=== PATIENT | female | born 2000 | race American Indian/Alaskan Native ===

== ENCOUNTER 2021-02-07 08:00 | Outpatient (CLI) | payer OTHER | END 2021-02-07 08:30 | disposition home or self-care (01) | LOC: PPH VACUNA 08:00 | PROVIDERS: ATTEND Emergency Medicine Pediatric Emergency Medicine | DX: Z23 Encounter for immunization (principal) ==

== ENCOUNTER 2021-04-11 09:00 | Outpatient (CLI) | payer OTHER | END 2021-04-11 09:15 | disposition home or self-care (01) | LOC: PPH VACUNA 09:00 | PROVIDERS: ATTEND Emergency Medicine Pediatric Emergency Medicine | DX: Z23 Encounter for immunization (principal) ==

== ENCOUNTER 2021-08-09 14:38 | Emergency (ER) | payer OTHER ==
[~2021-08-09] VITALS: Ht 160 cm; Wt 50.8 kg
[2021-08-09] MEDS ORDERED: ZITHROMAX200 MG PO (16:32)
== END 2021-08-09 16:38 | disposition home or self-care (01) ==
LOC: ER 14:38
DX: A49.3 Mycoplasma infection, unspecified site (principal); R53.81 Other malaise; Z20.822 Contact with and (suspected) exposure to COVID-19; Z88.2 Allergy status to sulfonamides; Z88.1 Allergy status to other antibiotic agents

== ENCOUNTER 2022-04-23 16:00 | Outpatient (CLI) | payer OTHER ==
[~2022-04-23 16:00] MED LIST: ZITHROMAX200 MG PO
== END 2022-04-23 16:15 | disposition home or self-care (01) ==
LOC: PPH VACUNA 16:00
PROVIDERS: ATTEND Emergency Medicine Pediatric Emergency Medicine
DX: Z23 Encounter for immunization (principal)

== ENCOUNTER → 2022-05-15 06:48 | Outpatient (CLI) | payer OTHER | END | disposition home or self-care (01) | LOC: LAB 06:48 | PROVIDERS: ATTEND Student in an Organized Health Care Education/Training Program | DX: Z12.11 Encounter for screening for malignant neoplasm of colon (principal); D64.9 Anemia, unspecified; D03.8 Melanoma in situ of other sites; N95.1 Menopausal and female climacteric states; I10 Essential (primary) hypertension; C51.9 Malignant neoplasm of vulva, unspecified; N30.00 Acute cystitis without hematuria; E83.51 Hypocalcemia; A64 Unspecified sexually transmitted disease; N39.0 Urinary tract infection, site not specified; R97.8 Other abnormal tumor markers; R79.89 Other specified abnormal findings of blood chemistry; E55.9 Vitamin D deficiency, unspecified; A60.9 Anogenital herpesviral infection, unspecified ==

== ENCOUNTER 2022-08-28 09:45 | Outpatient (CLI) | payer OTHER | END 2022-08-28 15:42 | disposition home or self-care (01) | LOC: MRI 09:45 | PROVIDERS: ATTEND Student in an Organized Health Care Education/Training Program | DX: R10.2 Pelvic and perineal pain (principal); R19.00 Intra-abdominal and pelvic swelling, mass and lump, unspecified site ==

== ENCOUNTER 2023-02-04 06:29 | Outpatient (CLI) | payer OTHER ==
[~2023-02-04 06:29] MED LIST changes: +ZITHROMAX500 MG PO
[2023-02-04 07:43] LABS: PH,URINE 5.5 (5.0-8.0); URINE APPEARANCE Clear; URINE BILIRRUBIN Negative (NEGATIVE); URINE BLOOD Negative; URINE COLOR Yellow; URINE GLUCOSE Negative (NEGATIVE); URINE LEUKOCYTE Negative; URINE NITRATE Negative; URINE PROTEIN Negative (NEGATIVE); URINE UROBILINOGEN 0.2 E.U./dl
[2023-02-04 07:47] LABS: URINE RBC 9.1 uL (0.0-20.8)
[2023-02-04 08:04] LABS: URINE EPITHELIAL CELLS 1.2 uL (0.0-38.8); URINE WBC 1.6 uL (0.0-23.2)
[2023-02-04 08:05] LABS: HEMOGLOBIN 12.8 g/dL (12.0-15.00); MEAN CELL VOLUME 93.4 fL (80.00-100.00); MEAN CORPUSCULAR HEMOGLOBIN 32.5 pg (27.00-32.0); MEAN CORPUSCULAR HGB CONC 34.7 g/dl (32.0-36.0); PLATELET COUNT 231 K/uL (150-450); RED BLOOD COUNT 3.96 M/uL (4.00-6.00); RED CELL DISTRIBUTION WIDTH 12.9 % (11.5-14.5)
[2023-02-04 08:24] LABS: ALBUMIN 3.7 gm/dL (3.4-5.0); ALKALINE PHOSPHATASE 45 U/L (50-136); ALT/SGPT 69 U/L (12-78); ANION GAP 8 (10.0-20.0); AST/SGOT 130 U/L (15-37); BILIRUBIN TOTAL 0.45 mg/dL (0.3-1.2); BLOOD UREA NITROGEN 20 mg/dL (7-18); BUN CREA RATIO 32 (7.0-25.0); CALCIUM 8.7 mg/dL (8.5-10.1); CARBON DIOXIDE 27 mEq/L (21-32); CHLORIDE 107 mmol/L (98-107); CHOL HDL RATIO 2.5 (0-5.0); CHOLESTEROL 114 mg/dL (0-200); CREATININE SERUM 0.62 mg/dL (0.55-1.02); FREE TRIODOTIRONINE 2.78 pg/ml (2.18-3.98); GFR 117.28; GLOBULINA 3.3 G/DL (2.4-3.5); GLUCOSE FASTING 90 mg/dL (65-100); HDL 46 mg/dl (40-60); LDL 54 mg/dl (0-130); OSMOLALITY SERUM 278 MOSM/KG (275-295); POTASSIUM 3.75 mEq/L (3.5-5.1); SODIUM 138 mmol/L (136-145); T4 TOTAL 7.67 UG/DL (4.8-13.9); TRIGLYCERIDES 68 mg/dL (0-150); VLDL 13 (0-39)
[2023-02-04 08:29] LABS: C-REACTIVE PROTEIN < 0.29 MG/DL (0.00-0.29)
[2023-02-04 09:28] LABS: ERYTHROCYTE SEDIMENTATION RATE 2 mm/hr
== END 2023-02-04 06:30 | disposition home or self-care (01) ==
LOC: LAB 06:29
PROVIDERS: ATTEND Internal Medicine
DX: D25.9 Leiomyoma of uterus, unspecified (principal); Z13.1 Encounter for screening for diabetes mellitus; Z13.220 Encounter for screening for lipoid disorders; Z13.29 Encounter for screening for other suspected endocrine disorder; E55.9 Vitamin D deficiency, unspecified; N39.0 Urinary tract infection, site not specified; R73.9 Hyperglycemia, unspecified; Z88.1 Allergy status to other antibiotic agents; Z88.2 Allergy status to sulfonamides

== ENCOUNTER → 2023-03-04 | Emergency (ER) | payer OTHER ==
[~2023-03-04] VITALS: Ht 154.9 cm; Wt 49.9 kg
[~2023-03-04] MED LIST changes: +MACROBID 100 M100 MG PO
[2023-03-04 16:21] LABS: HEMATOCRIT 43.2 % (36.0-45.00); HEMOGLOBIN 14.7 g/dL (12.0-15.00); MEAN CELL VOLUME 93.9 fL (80.00-100.00); MEAN CORPUSCULAR HEMOGLOBIN 31.9 pg (27.00-32.0); PLATELET COUNT 264 K/uL (150-450); RED CELL DISTRIBUTION WIDTH 12.2 % (11.5-14.5)
[2023-03-04 16:47] LABS: INR 1.04; PARTIAL THROMBOPLASTIN TIME 32.2 SECONDS (22.0-34.0); PROTHROMBIN TIME 10.9 SECONDS (9.0-11.5)
[2023-03-04 16:49] LABS: CALCIUM 9.5 mg/dL (8.5-10.1); CREATININE SERUM 0.79 mg/dL (0.55-1.02); GFR 88.67; POTASSIUM 3.92 mEq/L (3.5-5.1)
[2023-03-04 17:23] LABS: PH,URINE 7.5 (5.0-8.0); URINE APPEARANCE Turbid; URINE BILIRRUBIN Negative (NEGATIVE); URINE BLOOD Small; URINE COLOR Yellow; URINE GLUCOSE Negative (NEGATIVE); URINE LEUKOCYTE Small; URINE NITRATE Negative; URINE PROTEIN Negative (NEGATIVE)
[2023-03-04 17:24] LABS: URINE BACTERIA 3687.9 uL (0.0-1933); URINE EPITHELIAL CELLS 94.3 uL (0.0-38.8); URINE RBC 21.5 uL (0.0-20.8); URINE WBC 19.9 uL (0.0-23.2)
== END | disposition home or self-care (01) ==
LOC: ER 14:21
PROVIDERS: Nurse Practitioner Family
DX: R10.2 Pelvic and perineal pain (principal); Z88.2 Allergy status to sulfonamides; Z88.6 Allergy status to analgesic agent; D25.9 Leiomyoma of uterus, unspecified; N39.0 Urinary tract infection, site not specified

== ENCOUNTER 2023-03-16 20:39 | Inpatient (IN) | payer OTHER ==
[~2023-03-16] VITALS: Ht 157.5 cm; Wt 49.9 kg
[2023-03-16 21:41] LABS: HEMATOCRIT 39.9 % (36.0-45.00); HEMOGLOBIN 13.9 g/dL (12.0-15.00); MEAN CELL VOLUME 93.5 fL (80.00-100.00); MEAN CORPUSCULAR HEMOGLOBIN 32.5 pg (27.00-32.0); MEAN CORPUSCULAR HGB CONC 34.8 g/dl (32.0-36.0); PLATELET COUNT 264 K/uL (150-450); RED BLOOD COUNT 4.27 M/uL (4.00-6.00); RED CELL DISTRIBUTION WIDTH 12.2 % (11.5-14.5)
[2023-03-16 23:29] LABS: PH,URINE 6.5 (5.0-8.0); URINE APPEARANCE Clear; URINE BILIRRUBIN Negative (NEGATIVE); URINE BLOOD Negative; URINE COLOR Yellow; URINE LEUKOCYTE Negative; URINE NITRATE Negative; URINE PROTEIN Negative (NEGATIVE)
[2023-03-16 23:33] LABS: URINE BACTERIA 264.5 uL (0.0-1933); URINE EPITHELIAL CELLS 31.3 uL (0.0-38.8); URINE RBC 21.1 uL (0.0-20.8); URINE WBC 11.5 uL (0.0-23.2)
[2023-03-16 23:41] LABS: HEMATOCRIT 41.1 % (36.0-45.00); HEMOGLOBIN 13.9 g/dL (12.0-15.00); MEAN CELL VOLUME 93.6 fL (80.00-100.00); MEAN CORPUSCULAR HEMOGLOBIN 31.8 pg (27.00-32.0); PLATELET COUNT 266 K/uL (150-450); RED BLOOD COUNT 4.39 M/uL (4.00-6.00); RED CELL DISTRIBUTION WIDTH 12.1 % (11.5-14.5)
[2023-03-16 23:42] LABS: URINE GLUCOSE >=1000 MG/DL (NEGATIVE)
[2023-03-16 23:49] LABS: ALBUMIN 4.5 gm/dL (3.4-5.0); BILIRUBIN TOTAL 0.93 mg/dL (0.3-1.2); CALCIUM 9.9 mg/dL (8.5-10.1); CREATININE SERUM 0.96 mg/dL (0.55-1.02); GFR 70.81; GLOBULINA 4.4 G/DL (2.4-3.5); POTASSIUM 3.25 mEq/L (3.5-5.1); TOTAL PROTEIN 8.9 gm/dL (6.4-8.2)
[2023-03-17 00:56] LABS: INR 1.04; PROTHROMBIN TIME 10.9 SECONDS (9.0-11.5)
[2023-03-17 01:01] LABS: ABG PH 7.447 (7.35-7.45); ABG PO2 117.2 mmHg (80-100); ABG pCO2 27.9 mmHg (35-45); BASE EXCESS -3.6 mmol/l; BICARBONATE 18.8 mmol/l (23-25); SaO2 98.7 %; Tco2 19.7 mmol/l; allen test SATISFACTORY; puncture site RADIAL LEFT
[2023-03-17 01:02] LABS: o2 21 %
[2023-03-17 01:50] LABS: AMYLASE 54 U/L (25-115); LIPASE 40 U/L (13-75)
[2023-03-17 06:11] LABS: HEMOGLOBIN 14.4 g/dL (12.0-15.00); MEAN CELL VOLUME 94.4 fL (80.00-100.00); MEAN CORPUSCULAR HEMOGLOBIN 32.3 pg (27.00-32.0); MEAN CORPUSCULAR HGB CONC 34.2 g/dl (32.0-36.0); PLATELET COUNT 286 K/uL (150-450); RED BLOOD COUNT 4.45 M/uL (4.00-6.00); RED CELL DISTRIBUTION WIDTH 12.3 % (11.5-14.5)
[2023-03-17 10:17] LABS: ALBUMIN 3.7 gm/dL (3.4-5.0); BILIRUBIN TOTAL 1.16 mg/dL (0.3-1.2); CALCIUM 8.8 mg/dL (8.5-10.1); CREATININE SERUM 0.74 mg/dL (0.55-1.02); GFR 95.62; GLOBULINA 3.7 G/DL (2.4-3.5); POTASSIUM 3.58 mEq/L (3.5-5.1); TOTAL PROTEIN 7.4 gm/dL (6.4-8.2)
[2023-03-18 07:12] LABS: HEMATOCRIT 32.7 % (36.0-45.00); HEMOGLOBIN 11.3 g/dL (12.0-15.00); MEAN CELL VOLUME 93.2 fL (80.00-100.00); MEAN CORPUSCULAR HEMOGLOBIN 32.3 pg (27.00-32.0); MEAN CORPUSCULAR HGB CONC 34.6 g/dl (32.0-36.0); PLATELET COUNT 189 K/uL (150-450); RED BLOOD COUNT 3.51 M/uL (4.00-6.00); RED CELL DISTRIBUTION WIDTH 12.5 % (11.5-14.5)
[2023-03-18 07:43] LABS: INR 1.09; PARTIAL THROMBOPLASTIN TIME 31.7 SECONDS (22.0-34.0); PROTHROMBIN TIME 11.4 SECONDS (9.0-11.5)
[2023-03-18 08:05] LABS: CALCIUM 8.1 mg/dL (8.5-10.1); MAGNESIUM 1.8 mg/dL (1.8-2.4); POTASSIUM 3.71 mEq/L (3.5-5.1)
[2023-03-18 08:10] LABS: FRUCTOSAMINE 195 umol/L (0-285)
[2023-03-18 08:11] LABS: BILIRUBIN TOTAL 0.51 mg/dL (0.3-1.2); BILIRUBIN,CONJUGATED 0.19 mg/dL (0.0-0.2); BILIRUBIN,UNCONJUGATED 0.32 mg/dL (0.0-0.6); CREATININE SERUM 0.66 mg/dL (0.55-1.02); GFR 109.12; GLOBULINA 2.5 G/DL (2.4-3.5); TOTAL PROTEIN 5.5 gm/dL (6.4-8.2)
[2023-03-18 08:16] LABS: C-REACTIVE PROTEIN 2.45 MG/DL (0.00-0.29)
[2023-03-18 08:47] LABS: PH,URINE 5.5 (5.0-8.0); URINE APPEARANCE Cloudy; URINE BILIRRUBIN Negative (NEGATIVE); URINE BLOOD Negative; URINE COLOR Yellow; URINE GLUCOSE Negative (NEGATIVE); URINE LEUKOCYTE Trace; URINE NITRATE Negative; URINE PROTEIN Negative (NEGATIVE); URINE UROBILINOGEN 0.2 E.U./dl
[2023-03-18 08:50] LABS: URINE BACTERIA 13.8 uL (0.0-1933); URINE EPITHELIAL CELLS 129.8 uL (0.0-38.8); URINE RBC 16.2 uL (0.0-20.8); URINE WBC 15.7 uL (0.0-23.2)
[2023-03-18 09:22] LABS: PLATELET ESTIMATE NORMAL (NORMAL)
[2023-03-18 10:08] LABS: INSULIN LEVELS 39.4 uIU/mL (2.6-24.9)
[2023-03-19 04:02] LABS: HEMATOCRIT 31.9 % (36.0-45.00); HEMOGLOBIN 11.1 g/dL (12.0-15.00); MEAN CELL VOLUME 92.6 fL (80.00-100.00); MEAN CORPUSCULAR HEMOGLOBIN 32.2 pg (27.00-32.0); MEAN CORPUSCULAR HGB CONC 34.7 g/dl (32.0-36.0); PLATELET COUNT 198 K/uL (150-450); RED BLOOD COUNT 3.45 M/uL (4.00-6.00); RED CELL DISTRIBUTION WIDTH 12.5 % (11.5-14.5)
[2023-03-19 04:09] LABS: ERYTHROCYTE SEDIMENTATION RATE 1 mm/hr
[2023-03-19 04:22] LABS: CALCIUM 7.9 mg/dL (8.5-10.1); CREATININE SERUM 0.58 mg/dL (0.55-1.02); GFR 126.67; MAGNESIUM 1.8 mg/dL (1.8-2.4); POTASSIUM 3.69 mEq/L (3.5-5.1)
[2023-03-19 04:31] LABS: C-REACTIVE PROTEIN 1.24 MG/DL (0.00-0.29)
[2023-03-19] MEDS ORDERED: INTESTINEX680 M1 PO (11:58)
[2023-03-19 14:07] LABS: GLUTAMIC ACID DECARBOXYLASE < 5.0 U/mL (0.0-5.0)
[2023-03-19 22:06] LABS: chla t Negative (Negative); neiss Negative (Negative)
[2023-03-23 18:06] LABS: PANCREATIC ISLET CELL Negative (Neg:<1:1)
== END 2023-03-19 12:11 | disposition home or self-care (01) | DRG 866 ==
LOC: ER 20:39 → SEC-K 03-17 09:19 → SURG 03-17 09:19
PROVIDERS: Emergency Medicine; General Practice; Internal Medicine Infectious Disease; ADMIT Internal Medicine; ATTEND Internal Medicine
PROC: BW21YZZ Computerized Tomography (CT Scan) of Abdomen and Pelvis using Other Contrast (ICD-10-PCS; principal; 2023-03-17)
DX: B34.9 Viral infection, unspecified (principal); N39.0 Urinary tract infection, site not specified; E27.49 Other adrenocortical insufficiency; R73.9 Hyperglycemia, unspecified; E87.6 Hypokalemia; Z73.3 Stress, not elsewhere classified; N80.9 Endometriosis, unspecified